=== PATIENT | female | born 1940 | race Caucasian/White ===

== ENCOUNTER 2020-06-05 07:47 | Day surgery (SDC) | payer OTHER ==
[2020-06-05] MEDS ORDERED: CEFAZOLIN/SWI 1gm 1 GM/10 ML SYR ONE (09:09)
[2020-06-05] MEDS ORDERED: Ringers Lactate 1,000 ML IV ONE (09:09)
[2020-06-05] MEDS ORDERED: LIDOCAINE 1% W/EPI 1:100,000 MDV 20 ML VIAL ONE (10:28)
[2020-06-05] MEDS ORDERED: LIDOCAINE 2% MPF 5 ML VIAL ONE (10:30)
[2020-06-05] MEDS ORDERED: FENTANYL CITR 100 MCG/2 ML ONE (10:30)
[2020-06-05] MEDS ORDERED: propofoL 200 MG/20 ML VIAL IV ONE (10:30)
[2020-06-05] MEDS ORDERED: ONDANSETRON 4 MG/2 ML VIAL ONE (10:36)
[2020-06-05] MEDS ORDERED: MIDAZOLAM HCL 2 MG/2 ML INJ ONE (10:37)
[2020-06-05 11:40] VITALS: TEMP 98.1
[2020-06-05 11:41] VITALS: BP 130/68; O2SAT 96
--- NOTE | 2020-06-05 21:00 | OP ---
Date of Procedure: 06/05/2020 Surgeon: Huyen Rosales MD Preoperative Diagnoses: Postmenopausal bleeding, possible uterine mass. Postoperative Diagnosis: Postmenopausal bleeding, possible uterine mass. Procedure Performed: Exam under anesthesia, hysteroscopy and dilation and curettage. Anesthesia: MAC plus paracervical block. Specimens: Endometrial curettings, large amount of tumorlike tissue was obtained. Estimated Blood Loss: Minimal. Complications: None. Drains: . Condition: The patient's condition is stable. Findings: Uterine cavity sounded to 3.5 inches, close to 8 cm. The uterine cavity completely filled with tumorlike tissue. Cavity itself was not very evident or patent as it was filled. After ensuri ng that it was the uterine cavity and that this was indeed the uterine tumor, scope was removed and e ndometrial curettings were performed and lots of the specimen was retrieved, which was consistent wit h tumor. Specimen was handed off for permanent pathology. Description Of Procedure: After informed consent was verified, the patient was taken back to OR. Th e patient is an 80-year-old female who presented with postmenopausal bleeding. Has been evaluated in the past for hematuria and for gynecological etiologies. Her Pap smear was negative. She had a tra nsvaginal ultrasound that we ordered after a pelvic exam showed there was bleeding in the vagina near the cervical os. The endometrial lining was extremely thick so just to confirm make sure that this was indeed a uterine mass and for confirming the nature of this an MRI was ordered. After confirming that the mass was indeed endometrial, although it abutted the cervix, we decided that she need an en dometrial sampling, so went on to consent her, get clearance and bring it to the office. She was con sented and brought to the OR. I do not think she was able to tolerate the procedure in the office du e to her age and her medical condition and that the difficulty to stay in lithotomy while awake. She was given 1 g of Ancef. Exam under anesthesia was performed and she was placed in a dorsal litho robb position. Then, no other tumors were seen in the vulva or vagina. The bladder, urethra, everyt manasa was completely unremarkable. The cervix was injected with the 1% lidocaine mixed with 1:100,000 epinephrine at 12 o'clock, 5 cc, at 4 and 8 o'clock positions for a paracervical block, 10 cc each. Then, after doing a Betadine prep, anterior lip was grasped with 2 Allis clamps and diagnostic hyste roscope was used to enter the cervical canal and traversed into the uterine cavity directly and this was where we saw the tumor as dictated above. The scope was pulled out. Endometrial curettings were then performed with a #1 curette. There was no need for any predilation. After the sample was obta ined, there was a small amount of bleeding. The instruments were removed. Instrument, needle, and s ponge counts were done and were correct at the end of the case. The specimen was handed off for perm anent pathology. The patient was recovered from anesthesia and taken to recovery room in a stable co ndition, and she will be discharged home from there. She will follow up with me in 1 week for pathol ogy results. Her daughter is informed about the operative findings. TALIB Voice ID: [id number] Report ID: [id number]
== END 2020-06-05 11:58 | disposition home or self-care (01) ==
LOC: OR 07:47
PROVIDERS: ATTEND Obstetrics & Gynecology
PROC: 0UDB8ZX Extraction of Endometrium, Via Natural or Artificial Opening Endoscopic, Diagnostic (ICD-10-PCS; principal; 2020-06-05 11:00)
DX: C54.1 Malignant neoplasm of endometrium (principal); N95.2 Postmenopausal atrophic vaginitis; N85.8 Other specified noninflammatory disorders of uterus; Z80.41 Family history of malignant neoplasm of ovary; I10 Essential (primary) hypertension; Z20.828 Contact with and (suspected) exposure to other viral communicable diseases
CPT/HCPCS: 88305; 58558; U0002; J2704; J2250; J3010; J0690; J7120; J2405